=== PATIENT | male | born 1950 | race Caucasian/White ===

== ENCOUNTER 2019-12-22 06:33 | Day surgery (SDC) | payer MEDICARE, OTHER ==
[2019-12-15 13:55] LABS: BASOPHILS % (AUTO) 0.4 % (0-1); EOSINOPHILS # (AUTO) 0.2 X10'3 (0-0.9); EOSINOPHILS % (AUTO) 2.7 % (0-6); LYMPHOCYTES # (AUTO) 1.9 X10'3 (1.1-4.8); LYMPHOCYTES % (AUTO) 29.3 % (21-51); MEAN CORPUSCULAR HEMOGLOBIN 33.2 PG (27.0-31.0); MEAN CORPUSCULAR HGB CONC 34.7 g/dL (33.0-36.5); MEAN CORPUSCULAR VOLUME 95.6 FL (78-98); MONOCYTES # (AUTO) 0.6 X10'3 (0-0.9); MONOCYTES % (AUTO) 9.3 % (2-12); NEUTROPHILS # (AUTO) 3.8 X10'3 (1.8-7.7); NEUTROPHILS % (AUTO) 58.3 % (42-75); PRE OP HEMOGLOBIN 14.9 g/dL (14.0-17.9); PRE OP PLATELET COUNT 183 X10'3 (140-440); RED BLOOD COUNT 4.49 X10'6 (4.70-6.10); RED CELL DISTRIBUTION WIDTH 13.2 % (11.5-14.5)
[2019-12-15 14:08] LABS: ALBUMIN 4.1 G/DL (3.4-5.0); ALBUMIN/GLOBULIN RATIO 1.3 (1.1-1.5); ALKALINE PHOSPHATASE 78 IU/L (46-116); BLOOD UREA NITROGEN 13 MG/DL (7-18); BUN/CREATININE RATIO 13.3 (5.4-32.0); CALCIUM 8.4 MG/DL (8.5-10.1); CHLORIDE 100 MMOL/L (99-107); CREATININE 0.98 MG/DL (0.60-1.10); PRE OP ALT 31 U/L (30-65); PRE OP ANION GAP 6 (8-16); PRE OP AST 18 U/L (10-37); PRE OP BILIRUB, TOTAL 0.5 MG/DL (0.0-1.0); PRE OP GLUCOSE 97 MG/DL (70-104); PRE OP POTASSIUM 4.3 MMOL/L (3.4-5.1); PRE OP SODIUM 135 MMOL/L (135-145); TOTAL CARBON DIOXIDE 28.6 MMOL/L (24-32); TOTAL PROTEIN 7.2 G/DL (6.4-8.2); eGFR 76 ML/MIN
[~2019-12-22] VITALS: Ht 177.8 cm; Wt 88.5 kg
[~2019-12-22 06:33] MED LIST: COLLAGEN PO; CYAN500T63 PO; ERGO400C PO; GABA600T13 PO; MEGA RED PO; MULT-1142 PO; ROSU10TA2 PO; TADA20TA54 PO; VITA0.4T7 PO; VITA400C67 PO; VITC500T PO; ceFAZolin 2gm in dextrose, iso 50 ML IV ONE; famotidine 20mg tablet PO ONE; ringers solution, lacted 1,000 ML IV SCH
[2019-12-22 06:45] VITALS: BP 124/90
[2019-12-22] MEDS ORDERED: LIDOcaine 1% 30ml preserv. free vial ONE (07:14)
[2019-12-22] MEDS ORDERED: ringers solution, lacted 1,000 ML IV SCH (07:46)
[2019-12-22] MEDS ORDERED: ondansetron/PF 4mg/2ml inj IV PRN (07:50)
[2019-12-22] MEDS ORDERED: morphine 4 MG/ML inj SYRINge IV PRN (07:50)
[2019-12-22] MEDS ORDERED: meperidine/PF 25mg/ml syringe IV PRN ×3 (07:50)
[2019-12-22] MEDS ORDERED: proCHLORperazine 10 MG/2 ml inj IV PRN (07:50)
[2019-12-22] MEDS ORDERED: morphine 2 MG/ML inj. syringe IV PRN (07:50)
[2019-12-22] MEDS ORDERED: fentaNYL/PF 50MCG/1 ML 2ML syringe ONE (08:48)
[2019-12-22] MEDS ORDERED: MIDAZolam 5mg/5ml vial ONE (08:48)
[2019-12-22] MEDS ORDERED: BUPIVAcaine/PF 2.5 mg/ml (0.25%) 30ml vial ONE (08:57)
[2019-12-22] MEDS ORDERED: BUPIVAcaine/PF 2.5 mg/ml (0.25%) 30ml vial IJ ONE (09:30)
[2019-12-22 09:44] VITALS: BP 139/82
--- NOTE | 2019-12-22 09:44 | NUR ---
Received from OR via [facility] accompanied by Anesthesiologist DR MUHAMMAD and report given by Anesthesiologist. 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 Addendum: 12/22/19 at 1008 by Suzy Whiting RN Amended: Links added.
[2019-12-22 09:54] VITALS: BP 138/88
[2019-12-22 10:04] VITALS: BP 144/83
[2019-12-22 10:14] VITALS: BP 138/85
[2019-12-22 10:24] VITALS: BP 137/83
[2019-12-22] MEDS ORDERED: ketorolac trometh. 30mg/ml inj. ONE (10:43)
--- NOTE | 2019-12-22 10:44 | NUR ---
D/C INSTRUCTIONS GIVEN AND GONE OVER W/PT WHO VERBALIZED UNDERSTANDING, PT D/CD TO HOME VIA W/C TO PRIVATE VEHICLE W/O INCIDENT. Addendum: 12/22/19 at 1056 by Suzy Whiting RN Amended: Links added.
== END 2019-12-22 10:44 | disposition home or self-care (01) ==
LOC: PAS 06:33
PROVIDERS: ATTEND Orthopaedic Surgery Hand Surgery
DX: G56.02 Carpal tunnel syndrome, left upper limb (principal); G56.22 Lesion of ulnar nerve, left upper limb; I25.10 Atherosclerotic heart disease of native coronary artery without angina pectoris; M19.90 Unspecified osteoarthritis, unspecified site; G90.50 Complex regional pain syndrome I, unspecified; Z11.59 Encounter for screening for other viral diseases; Z86.73 Personal history of transient ischemic attack (TIA), and cerebral infarction without residual deficits; Z96.661 Presence of right artificial ankle joint; Z98.41 Cataract extraction status, right eye; Z98.42 Cataract extraction status, left eye; Z95.5 Presence of coronary angioplasty implant and graft; Z87.891 Personal history of nicotine dependence; Z98.890 Other specified postprocedural states; Z91.09 Other allergy status, other than to drugs and biological substances; Z79.82 Long term (current) use of aspirin; Z79.899 Other long term (current) drug therapy; Z72.89 Other problems related to lifestyle
CPT/HCPCS: 36415; 64718; 64721; 80053; 82948; 85025; 93005; J1885; J2001; J2250; J3010; J3490; U0003; A4215; A6449; J7120

== ENCOUNTER 2020-02-19 06:37 | Day surgery (SDC) | payer MEDICARE ==
[2020-02-12 15:50] LABS: BASOPHILS % (AUTO) 0.3 % (0-1); EOSINOPHILS # (AUTO) 0.2 X10'3 (0-0.9); LYMPHOCYTES # (AUTO) 2.4 X10'3 (1.1-4.8); LYMPHOCYTES % (AUTO) 34.8 % (21-51); MEAN CORPUSCULAR HEMOGLOBIN 33.8 PG (27.0-31.0); MEAN CORPUSCULAR HGB CONC 34.9 g/dL (33.0-36.5); MEAN CORPUSCULAR VOLUME 96.8 FL (78-98); MEAN PLATELET VOLUME 7.3 FL (7.4-10.4); MONOCYTES # (AUTO) 0.7 X10'3 (0-0.9); MONOCYTES % (AUTO) 10.4 % (2-12); NEUTROPHILS # (AUTO) 3.5 X10'3 (1.8-7.7); NEUTROPHILS % (AUTO) 51.5 % (42-75); PRE OP HEMATOCRIT 44.5 % (42.0-52.0); PRE OP HEMOGLOBIN 15.5 g/dL (14.0-17.9); PRE OP PLATELET COUNT 197 X10'3 (140-440); RED BLOOD COUNT 4.59 X10'6 (4.70-6.10); RED CELL DISTRIBUTION WIDTH 13.6 % (11.5-14.5)
[2020-02-12 15:56] LABS: ALBUMIN 4.3 G/DL (3.4-5.0); ALBUMIN/GLOBULIN RATIO 1.5 (1.1-1.5); ALKALINE PHOSPHATASE 80 IU/L (46-116); BLOOD UREA NITROGEN 11 MG/DL (7-18); BUN/CREATININE RATIO 13.1 (5.4-32.0); CHLORIDE 101 MMOL/L (99-107); CREATININE 0.84 MG/DL (0.60-1.10); PRE OP ALT 36 U/L (30-65); PRE OP ANION GAP 5 (8-16); PRE OP AST 26 U/L (10-37); PRE OP BILIRUB, TOTAL 0.4 MG/DL (0.0-1.0); PRE OP GLUCOSE 97 MG/DL (70-104); PRE OP POTASSIUM 4.2 MMOL/L (3.4-5.1); PRE OP SODIUM 135 MMOL/L (135-145); TOTAL CARBON DIOXIDE 29.5 MMOL/L (24-32); TOTAL PROTEIN 7.2 G/DL (6.4-8.2); eGFR > 90 ML/MIN
[~2020-02-19] VITALS: Ht 177.8 cm; Wt 86.2 kg
[2020-02-19] VITALS (8 sets, daily range): BP systolic 114–132; BP diastolic 79–82
[~2020-02-19 06:37] MED LIST changes: +ASPI-1265 PO; -CYAN500T63 PO; +CYAN500T64 PO; -TADA20TA54 PO; -ceFAZolin 2gm in dextrose, iso 50 ML IV ONE; +cefazolin/dext.iso 2gm/50ml 50 ML IV ONE
[2020-02-19] MEDS ORDERED: BUPIVAcaine/PF 2.5mg/ml (0.25%) 10ml vial ONE (06:42)
[2020-02-19] MEDS ORDERED: LIDOcaine 0.5% (5mg/ml) 50ml vial ONE (07:40)
[2020-02-19] MEDS ORDERED: ringers solution, lacted 1,000 ML IV SCH (07:52)
[2020-02-19] MEDS ORDERED: acetaminophen 1,000mg/100ml IV 100 ML IV PRN (07:55)
[2020-02-19] MEDS ORDERED: meperidine/PF 25mg/ml syringe IV PRN ×3 (07:55)
[2020-02-19] MEDS ORDERED: morphine 4 MG/ML inj SYRINge IV PRN (07:55)
[2020-02-19] MEDS ORDERED: labetalol 20mg/4ml (5mg/ml) syringe IV PRN (07:55)
[2020-02-19] MEDS ORDERED: morphine 2 MG/ML inj. syringe IV PRN (07:55)
[2020-02-19] MEDS ORDERED: proCHLORperazine 10 MG/2 ml inj IV PRN (07:55)
[2020-02-19] MEDS ORDERED: hydrALAZINE 20mg/ml inj. IV PRN (07:55)
[2020-02-19] MEDS ORDERED: ondansetron/PF 4mg/2ml inj IV PRN (07:55)
[2020-02-19] MEDS ORDERED: fentaNYL/PF 50MCG/1 ML 2ML syringe ONE (09:34)
[2020-02-19] MEDS ORDERED: midazolam 2 mg/2 ml injection ONE (09:44)
[2020-02-19] MEDS ORDERED: propofol inj 20 ML IV ONE (10:08)
--- NOTE | 2020-02-19 10:15 | NUR ---
Received from OR via [facility] accompanied by Anesthesiologist DR FINN and report given by Anesthesiologist. PT AWAKE, DENIES PAIN, RIGHT HAND/WRIST AND ELBOW W/LIDIA WRAP COVERING INCISION CDI. Addendum: 02/19/20 at 1034 by Suzy Whiting RN Amended: Links added.
--- NOTE | 2020-02-19 11:45 | NUR ---
PT UP, ABLE TO AMBULATE SAFELY, D/C INSTRUCTIONS GIVEN AND GONE OVER W/PT WHO VERBALIZED UNDERSTANDING, PT D/CD TO HOME VIA W/C TO PRIVATE VEHICLE W/O INCIDENT. Addendum: 02/19/20 at 1204 by Suzy Whiting RN Amended: Links added.
== END 2020-02-19 11:45 | disposition home or self-care (01) ==
LOC: PAS 06:37
PROVIDERS: ATTEND Orthopaedic Surgery Hand Surgery
DX: G56.01 Carpal tunnel syndrome, right upper limb (principal); G56.21 Lesion of ulnar nerve, right upper limb; I25.10 Atherosclerotic heart disease of native coronary artery without angina pectoris; G62.9 Polyneuropathy, unspecified; M19.071 Primary osteoarthritis, right ankle and foot; Z20.828 Contact with and (suspected) exposure to other viral communicable diseases; Z79.899 Other long term (current) drug therapy; Z95.5 Presence of coronary angioplasty implant and graft; Z86.73 Personal history of transient ischemic attack (TIA), and cerebral infarction without residual deficits; Z98.890 Other specified postprocedural states; Z87.891 Personal history of nicotine dependence; Z96.661 Presence of right artificial ankle joint; Z85.820 Personal history of malignant melanoma of skin; Z79.82 Long term (current) use of aspirin; Z72.89 Other problems related to lifestyle
CPT/HCPCS: 36415; 64718; 64721; 80053; 82948; 85025; 87635; J2001; J2250; J2704; J3010; J3490; A4215; J7120

== ENCOUNTER → 2023-01-22 | Outpatient (CLI) | payer MEDICARE, OTHER ==
[~2023-01-22] MED LIST changes: -CYAN500T64 PO; +CYAN500T71 PO; -cefazolin/dext.iso 2gm/50ml 50 ML IV ONE; -famotidine 20mg tablet PO ONE; -ringers solution, lacted 1,000 ML IV SCH
== END | disposition home or self-care (01) ==
LOC: RAD 12:37
PROVIDERS: ATTEND Family Medicine
DX: M75.102 Unspecified rotator cuff tear or rupture of left shoulder, not specified as traumatic (principal); M25.412 Effusion, left shoulder; M89.312 Hypertrophy of bone, left shoulder; M75.22 Bicipital tendinitis, left shoulder; M65.812 Other synovitis and tenosynovitis, left shoulder; M25.512 Pain in left shoulder
CPT/HCPCS: 73221

== ENCOUNTER 2023-03-31 14:37 | Outpatient (CLI) | payer MEDICARE, OTHER | END 2023-03-31 23:59 | disposition home or self-care (01) | LOC: RAD 14:37 | PROVIDERS: ATTEND Family Medicine | DX: R41.82 Altered mental status, unspecified (principal); J34.89 Other specified disorders of nose and nasal sinuses | CPT/HCPCS: 70551 ==